=== PATIENT | male | born 1955 | race Caucasian/White ===

== ENCOUNTER 2020-09-21 11:39 | Outpatient (CLI) | payer MEDICARE, SELFPAY ==
[2020-09-21 11:58] VITALS: BP 113/67; PULSE 77; RESP 18; O2SAT 95; BMI 31.9
--- NOTE | 2020-09-21 12:12 | A.OFFVIS_ITS ---
Patient Information Referred by: Kimberlyn Plunkett NP Symptom onset date: 09/19/20 COVID 19 common symptoms: positive cough and fatigue COVID 19 other sytmptoms: positive chest pain Severity: moderate Other details: [place] positive covid 09/21/20 [facility] COVID test results: No Data to Display outside results available, scanned Criteria/Plan Inclusion/Exclusion Criteria weight >/= 40kg, + direct test </= 10 days ago and symptom onset </= 10 days ago age >/= 65 not requiring hospitalization, not requiring oxygen (if not chronically on oxygen) and no increase oxygen requirement (if chronically on oxygen) Patient education patient/caregiver received/reviewed fact sheet, Emergency Use Authorization/unapproved drug status discussed with patient/caregiver, alternatives to this treatment discussed with patient/caregiver, risks and benefits of medication reviewed with patient/caregiver, patient/caregiver given opportunity for questions, which were answered and patient/caregiver consents to receiving Monoclonal Antibody Treatment Plan for treatment Meets criteria for Monoclonal Antibody infusion Ordering Monoclonal Antibody infusion for today Other information 95% RA sat
[2020-09-21 14:19] VITALS: BP 113/66; PULSE 70; RESP 18; O2SAT 93
[2020-09-21 14:28] VITALS: BP 113/66; PULSE 70; RESP 18; O2SAT 93
== END 2020-09-21 14:20 | disposition home or self-care (01) ==
LOC: OPS 11:41
PROVIDERS: PCP Family Medicine; Visit Provider Nurse Practitioner Family
DX: U07.1 COVID-19 (principal)
CPT/HCPCS: 96365

== ENCOUNTER 2022-08-27 11:10 | Outpatient (RCR) | payer MEDICARE, OTHER, SELFPAY | END 2022-09-17 23:59 | disposition home or self-care (01) | LOC: SPT 11:10 | PROVIDERS: PCP Family Medicine; Visit Provider Orthopaedic Surgery | DX: Z47.1 Aftercare following joint replacement surgery (principal); Z96.611 Presence of right artificial shoulder joint | CPT/HCPCS: 97032; 97110; 97162 ==

== ENCOUNTER 2022-09-05 15:58 | Outpatient (CLI) | payer MEDICARE, OTHER, SELFPAY ==
--- NOTE | 2022-09-05 | CT_ITS ---
WS: [id number] CT LEFT SHOULDER, NONCONTRAST HISTORY: Preop, chronic shoulder pain. Technique: All CT scans at [facility] use at least one of these dose optimization techniques: automated exposure control; mA and/or kV adjustment per patient size (includes targeted exams where dose is matched to clinical indication); or iterative reconstruction. DLP: 529.77 mGy.cm COMPARISON: Radiograph 08/01/2020 Moderate narrowing of the glenohumeral joint. Sclerosis and cystic changes involving the glenoid. Ost eophytic ridging around the humeral head. No fractures or displacement. No loose body. No elevation o f the humeral head. Moderate narrowing of the AC joint with mild hypertrophic osteophyte formation involving the clavicle and acromion. Mild osteophyte encroachment upon the supraspinatus. No significant muscle atrophy rosemary ntified. The visualized ribs and LEFT lung are negative. Mild atherosclerosis thoracic aorta. CT/CT shoulder LT wo con* [id number] IMPRESSION: 1. Moderate osteoarthritic changes involving the glenohumeral joint. 2. Numerous subchondral cysts in the glenoid. 3. Mild osteophytic ridging around the humeral head. 4. Mild AC joint arthritis.
== END 2022-09-05 15:59 | disposition home or self-care (01) ==
LOC: RAD 15:59
PROVIDERS: PCP Family Medicine; Visit Provider Orthopaedic Surgery
DX: M19.012 Primary osteoarthritis, left shoulder (principal)
CPT/HCPCS: 73200

== ENCOUNTER 2022-10-14 17:08 | Outpatient (CLI) | payer MEDICARE, OTHER, SELFPAY ==
--- NOTE | 2022-10-14 17:24 | XRR_ITS ---
PROCEDURE INFORMATION: Exam: XR Chest Exam date and time: 10/14/2022 5:25 PM Age: 67 years old Clinical indication: Cough and shortness of breath and wheezing TECHNIQUE: Imaging protocol: Radiologic exam of the chest. Views: 2 views. COMPARISON: CR XR chest 2V* [id number] 09/18/2022 1:57 PM FINDINGS: Lungs: Mild hyperinflation, as noted with prior exam. No focal infiltrate or consolidation. Pulmonary vascularity is within normal limits. Pleural spaces: Unremarkable. No pleural effusion. No pneumothorax. Heart/Mediastinum: Unremarkable. No cardiomegaly. Vasculature: Mild calcification of the thoracic aorta. Bones/joints: Bilateral shoulder prostheses noted. Mild spondylotic change thoracic spine. XR/XR chest 2V* [id number] IMPRESSION: Stable appearance of the chest with prior exam. Mild hyperinflation and without acute findings.
== END 2022-10-14 17:09 | disposition home or self-care (01) ==
LOC: RAD 17:12
PROVIDERS: PCP Family Medicine; Visit Provider Family Medicine
DX: R05.9 Cough, unspecified (principal); R06.02 Shortness of breath; R06.2 Wheezing
CPT/HCPCS: 71046

== ENCOUNTER 2022-10-25 15:49 | Outpatient (CLI) | payer MEDICARE, OTHER, SELFPAY ==
[2022-10-25] MEDS: iohexol 350 mg/mL 500 mL Btl (per mL) IV (15:58)
--- NOTE | 2022-10-25 16:00 | CT_ITS ---
WS: [id number] CT CHEST WITH INTRAVENOUS CONTRAST HISTORY: persistent exp wheezes. Refractory to treatment TECHNIQUE: Contiguous 5 mm axial imaging performed on the thorax. Coronal and sagittal reformats are submitted. All CT scans at [facility] use at least one of these dose optimization techniques: automated exposure control; mA and/or kV adjustment per patient size (includes targeted exams where dose is matched to clinical indication); or iterative reconstruction. CONTRAST: Omnipaque 350; 100 mL IV. DLP: 658.86 mGy.cm COMPARISON: Chest radiograph 10/14/2022. Lungs and central airway: Noncalcified 3 mm nodule RIGHT upper lobe. Additional 3 mm noncalcified nod ule in the RIGHT middle lobe. Lungs are mildly hyperexpanded. Very slight interstitial thickening. No bronchiectasis or honeycombing identified. No pneumonia or dense consolidation. Pleura: Normal. No pleural effusion. Heart and pericardium: Normal size heart. A few scattered calcifications are noted within the pericar dium. No effusion. Mediastinum and scott: No mediastinum or hilar adenopathy. Vessels: Normal size aorta. Mild atherosclerosis. Normal size pulmonary artery. Minimal coronary diego ry calcification. Chest wall and lower neck: Artifact through the upper thorax secondary to bilateral femoral head pros theses. Upper abdomen: Contracted gallbladder. No adrenal mass. Osseous structures: Bilateral femoral head prostheses. Mild increase in thoracic kyphosis. No destruc tive bone lesions. CT/CT chest w con* [id number] IMPRESSION: 1. Micronodules, 3 mm, RIGHT upper and RIGHT middle lobes. With no increased r isk fractures for malignancy no follow-up necessary. 2. Mild pulmonary hyperexpansion and interstitial thickening. No pneumonia. 3. Mild atherosclerosis coronary artery calcifications. 4. No adenopathy.
== END 2022-10-25 15:50 | disposition home or self-care (01) ==
PROVIDERS: PCP Family Medicine; Visit Provider Family Medicine
DX: R06.2 Wheezing (principal); R91.8 Other nonspecific abnormal finding of lung field; I25.10 Atherosclerotic heart disease of native coronary artery without angina pectoris
CPT/HCPCS: 71260; Q9967

== ENCOUNTER → 2022-10-30 13:17 | Outpatient (BNVA) | payer MEDICARE, OTHER, SELFPAY | PROVIDERS: PCP Family Medicine; Visit Provider Family Medicine | DX: J18.9 Pneumonia, unspecified organism (principal); R05.9 Cough, unspecified | CPT/HCPCS: 85025; 85379 ==

== ENCOUNTER → 2024-03-02 10:33 | Outpatient (BNVA) | payer MEDICARE, OTHER, SELFPAY | PROVIDERS: PCP Family Medicine; Visit Provider Family Medicine | DX: M19.90 Unspecified osteoarthritis, unspecified site (principal) | CPT/HCPCS: 80053; 85025; 86140; 86160; 86162; 86235; 86255; 86376; 86431 ==

== ENCOUNTER → 2024-03-22 09:52 | Outpatient (BNVA) | payer MEDICARE, OTHER, SELFPAY | PROVIDERS: PCP Family Medicine; Visit Provider Family Medicine | DX: R73.03 Prediabetes (principal) | CPT/HCPCS: 83036 ==

== ENCOUNTER → 2024-04-08 11:58 | Outpatient (BNVA) | payer MEDICARE, OTHER, SELFPAY | PROVIDERS: PCP Family Medicine; Visit Provider Family Medicine | DX: E11.9 Type 2 diabetes mellitus without complications (principal) | CPT/HCPCS: 80061 ==

== ENCOUNTER → 2024-09-15 11:20 | Outpatient (BNVA) | payer MEDICARE, OTHER, SELFPAY | PROVIDERS: PCP Family Medicine; Visit Provider Family Medicine | DX: I10 Essential (primary) hypertension (principal); E11.9 Type 2 diabetes mellitus without complications; M19.90 Unspecified osteoarthritis, unspecified site | CPT/HCPCS: 80053; 80061; 83036 ==

== ENCOUNTER → 2025-04-21 11:19 | Outpatient (BNVA) | payer MEDICARE, OTHER, SELFPAY | PROVIDERS: PCP Family Medicine; Visit Provider Family Medicine | DX: I10 Essential (primary) hypertension (principal); E11.9 Type 2 diabetes mellitus without complications | CPT/HCPCS: 80053; 80061; 83036 ==